=== PATIENT | male | born 1955 | race African-American/Black ===

== ENCOUNTER → 2016-06-30 | Outpatient (CLI) | payer BC | LOC: OD 10:37 | PROVIDERS: ATTEND Internal Medicine | DX: M25.552 Pain in left hip (principal); M16.12 Unilateral primary osteoarthritis, left hip ==

== ENCOUNTER → 2016-07-17 | Outpatient (CLI) | payer BC ==
[2016-07-17 16:08] LABS: HEMATOCRIT 39.3 % (37.9-51.0); HEMOGLOBIN 13.2 g/dL (13.5-17.0); HGB HCT DIFFERENCE 0.3; MEAN CORPUSCULAR HEMOGLOBIN 30.8 pg (27.0-33.4); MEAN CORPUSCULAR HGB CONC 33.6 g/dL (32.0-36.0); MEAN CORPUSCULAR VOLUME 92 fl (80-97); RED BLOOD COUNT 4.29 10^6/uL (4.35-5.55); RED CELL DISTRIBUTION WIDTH 13.3 % (11.5-14.0)
[2016-07-17 16:28] LABS: ANION GAP 14 (5-19); BLOOD UREA NITROGEN 16 mg/dL (7-20); CALCIUM 9.3 mg/dL (8.4-10.2); CARBON DIOXIDE 24 mmol/L (22-30); CHLORIDE 106 mmol/L (98-107); CREATININE RESULT 0.86 mg/dL (0.52-1.25); GLUCOSE 116 mg/dL (75-110); POTASSIUM 3.1 mmol/L (3.6-5.0); SODIUM 143.5 mmol/L (137-145)
[2016-07-17 16:57] LABS: APPEARANCE,URINE CLEAR; BILIRUBIN,URINE NEGATIVE (NEGATIVE); GLUCOSE, URINE NEGATIVE (NEGATIVE); KETONES,URINE NEGATIVE (NEGATIVE); LEUKOCYTE ESTERASE,URINE NEGATIVE (NEGATIVE); NITRITE,URINE NEGATIVE (NEGATIVE); PROTEIN,URINE NEGATIVE (NEGATIVE); URINE SPECIFIC GRAVITY 1.024; UROBILINOGEN,URINE NEGATIVE mg/dL (<2.0)
[2016-07-17 16:58] LABS: RBC,URINE 0-1 /HPF
--- NOTE | 2016-07-17 18:04 | EKG REPORT ---
SEVERITY:- ABNORMAL ECG - SINUS RHYTHM PROBABLE LEFT VENTRICULAR HYPERTROPHY BORDERLINE T ABNORMALITIES, INFERIOR LEADS : Confirmed by: Jennyfer Dias MD 17-Jul-2016 18:03:28
== END ==
LOC: OD 14:58
PROVIDERS: ATTEND Orthopaedic Surgery
DX: Z01.810 Encounter for preprocedural cardiovascular examination (principal); Z01.811 Encounter for preprocedural respiratory examination; Z01.818 Encounter for other preprocedural examination; Z79.899 Other long term (current) drug therapy; M16.12 Unilateral primary osteoarthritis, left hip
CPT/HCPCS: 36415; 71020; 80048; 81001; 85027; 93005; 93010

== ENCOUNTER 2016-08-17 06:41 | Inpatient (IN) | payer BC ==
[2016-08-06 11:44] LABS: HEMATOCRIT 42.2 % (37.9-51.0); HEMOGLOBIN 14.2 g/dL (13.5-17.0); HGB HCT DIFFERENCE 0.4; MEAN CORPUSCULAR HEMOGLOBIN 30.9 pg (27.0-33.4); MEAN CORPUSCULAR HGB CONC 33.7 g/dL (32.0-36.0); MEAN CORPUSCULAR VOLUME 92 fl (80-97); RED BLOOD COUNT 4.61 10^6/uL (4.35-5.55); RED CELL DISTRIBUTION WIDTH 13.1 % (11.5-14.0); WHITE BLOOD COUNT 5.4 10^3/uL (4.0-10.5)
[2016-08-06 11:58] LABS: APPEARANCE,URINE CLEAR; BILIRUBIN,URINE NEGATIVE (NEGATIVE); GLUCOSE, URINE NEGATIVE (NEGATIVE); KETONES,URINE NEGATIVE (NEGATIVE); LEUKOCYTE ESTERASE,URINE NEGATIVE (NEGATIVE); NITRITE,URINE NEGATIVE (NEGATIVE); PROTEIN,URINE NEGATIVE (NEGATIVE); URINE SPECIFIC GRAVITY 1.019; UROBILINOGEN,URINE NEGATIVE mg/dL (<2.0)
[2016-08-06 11:59] LABS: ANION GAP 9 (5-19); BLOOD UREA NITROGEN 17 mg/dL (7-20); CALCIUM 9.9 mg/dL (8.4-10.2); CARBON DIOXIDE 28 mmol/L (22-30); CHLORIDE 105 mmol/L (98-107); CREATININE RESULT 0.81 mg/dL (0.52-1.25); GLUCOSE 97 mg/dL (75-110); POTASSIUM 3.8 mmol/L (3.6-5.0); SODIUM 141.8 mmol/L (137-145)
[~2016-08-17 06:41] MED LIST: BUPIVACAINE INJ/PF LIPOSOME/PF 266 MG/20 ML SDV IJ PRN; IBUPROFEN 800 MG/NS 250 ML IV PRN; LACTATED RINGERS 1000 ML IV PRN; LANSOPRAZOLE 15 MG TAB.RAP.DR PO PRN; LIDOCAINE 0.5% INJ-PF (5 MG/ML) 50 ML SDV SUBCUT PRN; OXYCODONE HCL SR 10 MG TABLET PO PRN; SCOPOLAMINE HYDROBROMIDE 1.5 MG PATCH.TD72 TOP PRN; VANCOMYCIN HCL 1,000 MG in DEXTROSE 5%-WATER 250 ML IV PRN
[2016-08-17] MEDS ORDERED: THROMBIN (BOVINE) TOPICAL 20000 UNIT VIAL ONE (07:20)
[2016-08-17] MEDS ORDERED: BUPIVACAINE INJ/PF LIPOSOME/PF 266 MG/20 ML SDV ONE (07:21)
[2016-08-17] MEDS ORDERED: THROMBIN (BOVINE) TOPICAL 5000 UNIT VIAL ONE (07:22)
[2016-08-17] MEDS: METOPROLOL TARTRATE 50 MG TABLET PO ONE ×2 (07:35→12:06)
[2016-08-17] MEDS: CARVEDILOL 12.5 MG TABLET PO ONE ×2 (07:35→12:06)
[2016-08-17] MEDS ORDERED: TRANEXAMIC ACID INJ/PF 1,000 MG/10 ML SDV IV ONE (07:44)
[2016-08-17] MEDS ORDERED: PROPOFOL INJ 200 MG/20 ML VIAL IV ONE (07:44)
[2016-08-17] MEDS ORDERED: MIDAZOLAM 2 MG/2 ML INJ ONE (07:44)
[2016-08-17] MEDS ORDERED: FENTANYL CITRATE INJ/PF 100 MCG/2 ML AMPUL ONE (07:44)
[2016-08-17] MEDS ORDERED: CEFAZOLIN INJ 1 GM VIAL ONE (08:20)
[2016-08-17] MEDS ORDERED: ONDANSETRON HCL INJ/PF 4 MG/2 ML SDV IV PRN ×2 (09:13→09:47)
[2016-08-17] MEDS ORDERED: FENTANYL CITRATE INJ/PF 100 MCG/2 ML AMPUL IV PRN ×3 (09:13)
[2016-08-17] MEDS ORDERED: ZOLPIDEM TARTRATE 5 MG TABLET PO PRN (09:47)
[2016-08-17] MEDS ORDERED: ONDANSETRON 4 MG TAB.RAPDIS PO PRN (09:47)
[2016-08-17] MEDS ORDERED: DIPHENHYDRAMINE HCL 50 MG/ML VIAL IV PRN (09:47)
[2016-08-17] MEDS ORDERED: ACETAMINOPHEN 325 MG TABLET PO PRN (09:47)
[2016-08-17] MEDS ORDERED: MAG HYDROX/AL HYDROX/SIMETH SUSP 30 ML UDCUP PO PRN (09:47)
[2016-08-17] MEDS ORDERED: MORPHINE SULFATE 10 MG/ML INJ IV PRN ×3 (09:47)
[2016-08-17] MEDS ORDERED: MORPHINE SULFATE 10 MG/ML INJ IM PRN (09:47)
[2016-08-17] MEDS ORDERED: RINGERS SOLUTION,LACTATED 1,000 ML IV PRN (09:47)
--- NOTE | 2016-08-17 09:47 | Operative Report ---
Operative Report DATE OF SURGERY: 08/17/16 PREOPERATIVE DIAGNOSIS: Left hip arthritis OPERATION: Left hip arthroplasty SURGEON: KEATON MCKEON ANESTHESIA: Spinal TISSUE REMOVED OR ALTERED: Bone to pathology ESTIMATED BLOOD LOSS: 100 PROCEDURE: Implants used: Femur: Striker #6 Accolade to stem Acetabular shell: 56 mm hemispherical shell Liner:, 36 mm flat cross-link polyethylene liner Head: 36 mm chrome cobalt head -5 neck The patient is placed in a right lateral decubitus position on the operating table. The left lower extremity and hindquarter is prepped and draped in a sterile fashion. A curvilinear incision was made over the greater trochanter a posterior approach the hip was taken. The femoral head is dislocated and the femoral neck transected using an oscillating saw. Attention was next turned to the acetabulum. Soft tissues cleared off the acetabulum using electrocautery. The acetabulum was then prepared using a series of hemispherical reamers until a 55 millimeters reamer is seated. Subsequently a. 56 millimeters Rhianna titanium hemispherical shell is impacted into position and secured with one screw. A standard flat 36 millimeters cross-link liner is impacted into the shell. Attention was next turned to the femur. Access is gained to the femoral canal using a box osteotome to the piriformis fossa. The femur is then prepared using a series of broaches until a number 6 broach is seated. A trial reduction was now performed using a 36 millimeters head with minus 5 neck. Preoperative leg length was recreated and is excellent anterior posterior stability. A decision was made to proceed with the above construct. All trial implants were removed. The wound is irrigated with pulsed lavage. A number 6 stem is impacted into the femoral canal. A trial reduction was again performed with a 36 mm head and a -5 neck. Findings as previously. The hip was dislocated one last time and the final chrome-cobalt head is impacted onto the trunnion. The hip was reduced. Wound is copiously irrigated with pulsed lavage. Sent closed in layers using interrupted Vicryl followed by mikey. A sterile dressing is applied and the patient's returned to recovery room in satisfactory patient.
[2016-08-17] MEDS ORDERED: AMLODIPIN PO SCH (10:00)
[2016-08-17] MEDS ORDERED: OMEGA PO SCH (10:00)
[2016-08-17] MEDS ORDERED: DHA PO SCH (10:00)
[2016-08-17] MEDS ORDERED: EPA PO SCH (10:00)
[2016-08-17] MEDS ORDERED: [UNRECOGNIZED DRUG - OTHER] PO SCH (10:00)
[2016-08-17] MEDS ORDERED: [UNRECOGNIZED DRUG - OTHER] PO SCH (10:00)
[2016-08-17] MEDS ORDERED: (PENDING PHARMACY ID) (Carvedilol [Coreg 25 Mg Tablet] 1 TAB) PO SCH (10:00)
[2016-08-17] MEDS ORDERED: HCTHIAZID PO SCH (10:00)
[2016-08-17] MEDS ORDERED: FISH OIL PO SCH (10:00)
[2016-08-17] MEDS ORDERED: OLMESARTAN PO SCH (10:00)
[2016-08-17] MEDS: TRANEXAMIC ACID INJ/PF 1,000 MG/10 ML SDV IV SCH (12:21)
[2016-08-17] MEDS: OXYCODONE HCL IR 5 MG TABLET PO PRN (13:59)
[2016-08-17] MEDS: IBUPROFEN 800 MG in NORMAL SALINE 250 ML IV SCH (17:11)
[2016-08-17] MEDS: SENNOSIDES/DOCUSATE 8.6-50 MG 1 EACH TABLET PO SCH (17:11)
[2016-08-17] MEDS: OXYCODONE HCL SR 10 MG TABLET PO SCH (17:11)
[2016-08-17] MEDS: CARVEDILOL 12.5 MG TABLET PO SCH (21:35)
[2016-08-17] MEDS: LEVETIRACETAM XR 500 MG TAB.SR.24H PO SCH (21:35)
[2016-08-17] MEDS: RIVAROXABAN 10 MG TABLET PO SCH (21:36)
[2016-08-17] MEDS ORDERED: VANCOMYCIN HCL 1,000 MG in DEXTROSE 5%-WATER 250 ML IV ONE (22:00)
[2016-08-18] MEDS: IBUPROFEN 800 MG in NORMAL SALINE 250 ML IV SCH ×3 (01:51→17:15)
[2016-08-18] MEDS: OXYCODONE HCL SR 10 MG TABLET PO SCH ×2 (06:28→17:15)
[2016-08-18] MEDS: LANSOPRAZOLE 30 MG TAB.RAP.DR PO SCH (06:29)
--- NOTE | 2016-08-18 06:54 | PDOC PROGRESS REPORT ---
Subjective Progress Note for:: 08/18/16 Subjective:: Patient with no complaints Physical Exam Vital Signs: Temp Pulse Resp BP Pulse Ox 37.2 C 62 18 119/74 94 08/17/16 23:08 08/17/16 23:08 08/17/16 23:08 08/17/16 23:08 08/17/16 23:08 Intake & Output 08/16/16 08/17/16 08/18/16 06:59 06:59 06:59 Intake Total 0 3300 Output Total 1550 Balance 0 1750 Weight 99.7 kg General appearance: PRESENT: no acute distress Head exam: PRESENT: normocephalic Eye exam: PRESENT: EOMI Respiratory exam: PRESENT: unlabored Cardiovascular exam: PRESENT: RRR Pulses: PRESENT: +1 pedal pulses bilateral Vascular exam: PRESENT: normal capillary refill GI/Abdominal exam: PRESENT: soft Rectal exam: PRESENT: deferred Musculoskeletal exam: PRESENT: other - Left hip dressing clean dry and intact. Leg lengths are equal. Neurovascular examinations intact. Neurological exam: PRESENT: alert, awake, oriented to person, oriented to place , oriented to time, oriented to situation. ABSENT: motor sensory deficit Psychiatric exam: PRESENT: appropriate affect, normal mood. ABSENT: homicidal ideation, suicidal ideation Skin exam: PRESENT: dry, intact, warm. ABSENT: cyanosis, rash Results Laboratory Results: 08/06/16 11:25 08/17/16 06:59 08/17/16 08/17/16 06:59 06:59 Potassium 3.7 Blood Type A POSITIVE Antibody Screen NEGATIVE Impressions: Pelvis X-Ray 08/17/16 09:48 IMPRESSION: Postoperative filming post left hip arthroplasty. Status: Imported from PACS Assessment & Plan - Diagnosis (1) Arthritis of left hip Is this a current diagnosis for this admission?: YesPlan: 61-year-old black male postop day 1 from left hip arthroplasty with uneventful postoperative course.. Pain is well controlled. Physical therapy. Patient will continue with postoperative rehabilitation. Anticipate discharge home tomorrow with home health nursing, home health physical therapy, we'll Walker, bedside commode. - Time Time Spent with patient: 15-24 minutes Anticipated discharge: Home with Homehealth Within: within 24 hours
[2016-08-18 07:20] LABS: HEMATOCRIT 33.5 % (37.9-51.0); HEMOGLOBIN 11.4 g/dL (13.5-17.0); HGB HCT DIFFERENCE 0.7; MEAN CORPUSCULAR HEMOGLOBIN 30.9 pg (27.0-33.4); MEAN CORPUSCULAR HGB CONC 33.9 g/dL (32.0-36.0); MEAN CORPUSCULAR VOLUME 91 fl (80-97); RED BLOOD COUNT 3.67 10^6/uL (4.35-5.55); RED CELL DISTRIBUTION WIDTH 12.6 % (11.5-14.0); WHITE BLOOD COUNT 12.4 10^3/uL (4.0-10.5)
[2016-08-18 07:40] LABS: ANION GAP 9 (5-19); BLOOD UREA NITROGEN 13 mg/dL (7-20); CALCIUM 8.8 mg/dL (8.4-10.2); CARBON DIOXIDE 25 mmol/L (22-30); CHLORIDE 106 mmol/L (98-107); CREATININE RESULT 0.82 mg/dL (0.52-1.25); GLUCOSE 150 mg/dL (75-110); POTASSIUM 3.2 mmol/L (3.6-5.0); SODIUM 139.8 mmol/L (137-145)
[2016-08-18] MEDS: OMEGA-3 ACID ETHYL ESTERS 1 GM CAPSULE PO SCH (07:54)
[2016-08-18] MEDS: AMLODIPINE BESYLATE 10 MG TABLET PO SCH (09:22)
[2016-08-18] MEDS: LOSARTAN POTASSIUM 50 MG TABLET PO SCH (09:22)
[2016-08-18] MEDS: PRENATAL VITAMIN W-O CA NO5/FE FUMARATE/FA CAPSULE PO SCH (09:53)
[2016-08-18] MEDS: CARVEDILOL 12.5 MG TABLET PO SCH ×2 (09:53→21:22)
[2016-08-18] MEDS: HYDROCHLOROTHIAZIDE 12.5 MG CAPSULE PO SCH (09:54)
[2016-08-18] MEDS: SENNOSIDES/DOCUSATE 8.6-50 MG 1 EACH TABLET PO SCH ×2 (09:54→17:15)
[2016-08-18] MEDS: METOPROLOL SUCCINATE 50 MG TAB.SR.24H PO SCH (09:54)
[2016-08-18] MEDS: TRANEXAMIC ACID INJ/PF 1,000 MG/10 ML SDV IV SCH (11:08)
[2016-08-18] MEDS: LEVETIRACETAM XR 500 MG TAB.SR.24H PO SCH (21:22)
[2016-08-18] MEDS: RIVAROXABAN 10 MG TABLET PO SCH (21:22)
[2016-08-19] MEDS: OXYCODONE HCL SR 10 MG TABLET PO SCH (06:08)
[2016-08-19] MEDS: LANSOPRAZOLE 30 MG TAB.RAP.DR PO SCH (06:09)
[2016-08-19 06:56] LABS: HEMATOCRIT 31.1 % (37.9-51.0); HEMOGLOBIN 10.6 g/dL (13.5-17.0); HGB HCT DIFFERENCE 0.7; MEAN CORPUSCULAR HEMOGLOBIN 30.8 pg (27.0-33.4); MEAN CORPUSCULAR VOLUME 91 fl (80-97); RED BLOOD COUNT 3.43 10^6/uL (4.35-5.55); RED CELL DISTRIBUTION WIDTH 12.6 % (11.5-14.0); WHITE BLOOD COUNT 12.7 10^3/uL (4.0-10.5)
[2016-08-19] MEDS: OMEGA-3 ACID ETHYL ESTERS 1 GM CAPSULE PO SCH (08:03)
[2016-08-19] MEDS: OXYCODONE HCL IR 5 MG TABLET PO PRN (08:05)
--- NOTE | 2016-08-19 08:27 | PDOC DISCHARGE SUMMARY ---
General - Admit/Disc Date/PCP Admission Date/Primary Care Provider: 08/17/16 06:41 REBECCA ARAMBULA MD Discharge Date: 08/19/16 - Discharge Diagnosis (1) Arthritis of left hip Is this a current diagnosis for this admission?: Yes - Additional Information Resuscitation Status: Full Code Discharge Diet: As Tolerated, Regular Discharge Activity: Activity As Tolerated, Balance Activity w/Rest Home Medications: Levetiracetam [Levetiracetam ER] 500 mg PO QHS 08/23/15 Metoprolol Succinate [Toprol Xl 50 mg Tab.sr] 50 mg PO DAILY #30 tab.sr.24h 06/08 Olmesartan/Amlodipin/Hcthiazid [Tribenzor 40-10-12.5 mg Tablet] 1 tab PO DAILY 08/23/15 Aspirin [Aspirin EC] 325 mg PO DAILY 08/05/16 Carvedilol [Coreg 25 mg Tablet] 1 tab PO BID 08/05/16 Meloxicam [Mobic] 7.5 mg PO DAILY PRN 08/05/16 [place]-3/Dha/Epa/Fish Oil [[place]-3 Fish Oil 1,000 mg Sfgl] 1,000 mg PO DAILY Oxycodone HCl [Oxy-Ir 5 mg Tablet] 5 mg PO Q6HP PRN #0 tablet 08/19/16 Rivaroxaban [Xarelto 10 mg Tablet] 10 mg PO QHS #0 tablet 08/19/16 History of Present Illness History of Present Illness: PRIETO ALEX is a 61 year old male with progressive left hip pain and functional disability secondary osteoarthritis. Patient's admitted for elective left hip arthroplasty. Hospital Course Hospital Course: A she is admitted through the operating room where he undergoes an uncomfortable left hip arthroplasty. His returned to floor in satisfactory condition. He makes excellent progress with physical therapy. Physical Exam Vital Signs: Temp Pulse Resp BP Pulse Ox 37.1 C 78 16 128/75 H 91 L 08/19/16 07:39 08/19/16 07:39 08/19/16 07:39 08/19/16 07:39 08/19/16 07:39 Intake & Output 08/18/16 08/19/16 08/20/16 06:59 06:59 06:59 Intake Total 3300 2300 Output Total 1550 400 Balance 1750 1900 Weight 99.7 kg 97.5 kg General appearance: PRESENT: no acute distress Head exam: PRESENT: normocephalic Eye exam: PRESENT: EOMI Respiratory exam: PRESENT: unlabored Cardiovascular exam: PRESENT: RRR Vascular exam: PRESENT: normal capillary refill GI/Abdominal exam: PRESENT: soft Rectal exam: PRESENT: deferred Extremities exam: PRESENT: other - Left lower extremity dressing remains clean dry and intact. Leg lengths are equal. Distal neurovascular examinations intact. Neurological exam: PRESENT: alert, awake, oriented to person, oriented to place , oriented to time, oriented to situation. ABSENT: motor sensory deficit Psychiatric exam: PRESENT: appropriate affect, normal mood. ABSENT: homicidal ideation, suicidal ideation Skin exam: PRESENT: dry, intact, warm. ABSENT: cyanosis, rash Results Laboratory Results: 08/19/16 06:04 08/18/16 06:54 08/19/16 06:04 WBC 12.7 H RBC 3.43 L Hgb 10.6 L Hct 31.1 L MCV 91 MCH 30.8 MCHC 34.0 RDW 12.6 Plt Count 152 Impressions: Pelvis X-Ray 08/17/16 09:48 IMPRESSION: Postoperative filming post left hip arthroplasty. Status: Imported from PACS Plan Discharge Plan: Patient to be discharged home with home health nursing, home health physical therapy, we'll Walker, bedside commode. He cut dressing can be changed by the home health nursing services on postop day #7. He can be replacement. A standard OpSite dressing. Follow-up will be with Dr. Adam in the [facility] for surgery in 2 weeks for staple removal.
[2016-08-19 08:31] VITALS: BP 123/64
[2016-08-19] MEDS: CARVEDILOL 12.5 MG TABLET PO SCH (10:37)
[2016-08-19] MEDS: SENNOSIDES/DOCUSATE 8.6-50 MG 1 EACH TABLET PO SCH (10:37)
[2016-08-19] MEDS: AMLODIPINE BESYLATE 10 MG TABLET PO SCH (10:38)
[2016-08-19] MEDS: METOPROLOL SUCCINATE 50 MG TAB.SR.24H PO SCH (10:38)
[2016-08-19] MEDS: HYDROCHLOROTHIAZIDE 12.5 MG CAPSULE PO SCH (10:39)
[2016-08-19] MEDS: PRENATAL VITAMIN W-O CA NO5/FE FUMARATE/FA CAPSULE PO SCH (10:39)
[2016-08-19] MEDS: LOSARTAN POTASSIUM 50 MG TABLET PO SCH (10:39)
== END 2016-08-19 11:05 | disposition home or self-care (01) | DRG 470 ==
LOC: INOR 06:41 → 4S 11:28
PROVIDERS: ADMIT Orthopaedic Surgery; ATTEND Orthopaedic Surgery
PROC: 0SRB029 Replacement of Left Hip Joint with Metal on Polyethylene Synthetic Substitute, Cemented, Open Approach (ICD-10-PCS; principal; 2016-08-17 08:45)
DX: M16.12 Unilateral primary osteoarthritis, left hip (principal); I10 Essential (primary) hypertension; I48.91 Unspecified atrial fibrillation; Z79.899 Other long term (current) drug therapy
CPT/HCPCS: 01214; 36415; 72170; 80048; 81001; 84132; 85027; 86850; 86900; 86901; 88304; 88311; 94799; C1713; C9290; J0690; J1741; J2250; J2704; J3010; J3370; J3490; J7050; J7060